=== PATIENT | male | born 1940 | race Caucasian/White ===

== ENCOUNTER 2022-06-02 13:08 | Outpatient (CLI) | payer MEDICARE, BC ==
[2022-06-02 14:46] LABS: Hemoglobin 12.2 g/dL (13.5-17.5); Mean Corpuscular Volume 96.7 fl (81.2-95.1); Mean Platelet Volume 8.7 fl (7.4-10.4); Platelet Count 364 10x3/uL (150-450); Red Blood Cell (RBC) Count 3.94 10x6/uL (4.32-5.72); White Blood Cell (WBC) Count 5.9 10x3/uL (3.5-10.5)
[2022-06-02 14:47] LABS: PTT 25.9 sec (22.0-33.0); Prothrombin Time 10.5 sec (9.5-12.1)
[2022-06-02 15:08] LABS: Sodium 138 mmol/L (136-145)
[2022-06-02 15:09] LABS: Anion Gap 16 mmol/L (10-20); BUN (Urea Nitrogen) 15 mg/dL (8.4-25.7); Calc. Creatinine Clearance 0 mL/min (70-130); Calcium 9.1 mg/dL (7.8-10.44); Carbon Dioxide 23 mmol/L (23-31); Chloride 104 mmol/L (98-107); Estimated GFR 44; Glucose 167 mg/dL (83-110); Potassium 4.7 mmol/L (3.5-5.1)
== END 2022-06-02 13:09 | disposition home or self-care (01) ==
LOC: LABBT 13:08
PROVIDERS: ATTEND Neurological Surgery
DX: Z01.812 Encounter for preprocedural laboratory examination (principal); M48.061 Spinal stenosis, lumbar region without neurogenic claudication
CPT/HCPCS: 80048; 85027; 85610; 85730